=== PATIENT | male | born 1975 | race African-American/Black ===

== ENCOUNTER 2022-04-11 14:00 | Emergency (ER) | payer BC, MEDICAID, SELFPAY ==
[2022-04-11 14:02] VITALS: BP 146/85; PULSE 79; RESP 16; TEMP 36.2; O2SAT 96; BMI 26.9
--- NOTE | 2022-04-11 16:04 | ED.VIS.LOWEX ---
HPI History of Present Illness Chief Complaint: Lower Extremity Injury Informant: patient Occured/Mechanism Mechanism/Context: Yes unknown Onset/Context/Timing Onset: Today Context: Sudden Onset Timing: Continuous Quality of Pain: Aching Location: R calf Current Severity: Moderate Maximum Severity: Severe Worsened by: moving foot, trying to WB Relieved by: remaining still Associated Symptoms Associated Symptoms: Negative for Parasthesia or Weakness Narrative Narrative: Patient states he was on his driveway during his lunch break, he states that he turned to run and upon starting to do this he heard and felt a loud pop in his right calf that felt like he was shot in the calf. Since then he has had pain there and unable to bear weight on it without severe discomfort. No numbness or tingling, no pain in his knee or ankle. PFSH PFSH Medical History no medical history no medical history Home Medications naproxen 500 mg tablet 500 mg PO BID PRN #20 tabs 04/11/22 [Rx Last Taken Unknown] Allergy/AdvReac Type Severity Reaction Status Date / Time No Known Allergies Allergy Verified 04/11/22 14:01 Surgical History no surgical history no surgical history Social History Smoking Status: Light Smoker (<10/day) ROS ROS ED Constitutional Constitutional ED: Denies chills or fever(s) Musculoskeletal Musculoskeletal: Reports extremity pain; Denies neck pain Integumentary Denies Abrasions, rash or wounds Neurologic Neurologic: Denies paresthesias or weakness EXAM Physical Exam Const Vital Signs: 04/11/22 14:02 Temperature 97.2 F L Temperature Source Temporal Pulse Rate 79 Respiratory Rate 16 Blood Pressure 146/85 H Blood Pressure Mean 105 Pulse Ox 96 Oxygen Delivery Method Room Air Positive well nourished and well developed General Appearance ED: well developed and NAD Neck full ROM and supple Back/Spine normal ROM and normal to inspection Extremity Extremity Narrative: Mild asymmetric swelling right calf with tenderness in the medial aspect of the gastrocnemius. Slowly is nontender. Able to plantar flex but limited because it is very painful. Able to dorsiflex better but that hurts too. Cummins test is normal, with Achilles appearing to be intact. No bony tenderness in the knee or the fibula or the tibia. No popliteal tenderness or pain. Neuro oriented x3, no focal motor deficits and no sensory deficits noted Sensorium / Orientation: alert Psych mental status grossly normal and thought process normal Skin no wounds Rashes: no rashes MDM MDM MDM Narrative Medical decision making narrative: Consistent with a gastrocnemius muscle rupture. I do not feel a cord, this is not a DVT. Patient states he was seen in urgent care initially and sent here, he does not need any other tests here, he needs to follow-up with orthopedics, he is given crutches, and anti-inflammatories and advised to ice. He was also given work restrictions because he has very mobile in his job. Discussed with Dr. Bran, agrees with crutches, anti-inflammatories, ice, and follow-up. Discharge Plan Triage Chief Complaint: Lower Extremity Injury ED Provider: Rayo Murillo Dx/Rx/DC Orders Clinical Impression: Rupture of right gastrocnemius muscle Instructions: Gastrocnemius Muscle Tear Prescriptions: New naproxen 500 mg tablet 500 mg PO BID PRN Qty: 20 0RF Stand Alone Forms: Work Status Form Primary Care Provider: Zaire Mcdonald Referrals: Zaire Mcdonald MD [Primary Care Provider] - Francis Bran DO [STAFF PHYSICIAN] - As soon as possible (call for appt) Disposition Disposition: Home, Self Care
[2022-04-11] MEDS: Naproxen 250 MG Tablet 500 MG PO (16:21)
== END 2022-04-11 16:25 | disposition home or self-care (01) ==
LOC: ED 16:21
PROVIDERS: Emergency Provider Emergency Medicine; PCP Family Medicine; Visit Provider Emergency Medicine
DX: S86.111A Strain of other muscle(s) and tendon(s) of posterior muscle group at lower leg level, right leg, initial encounter (principal); X58.XXXA Exposure to other specified factors, initial encounter; Y93.02 Activity, running; Y92.89 Other specified places as the place of occurrence of the external cause; F17.200 Nicotine dependence, unspecified, uncomplicated
CPT/HCPCS: 99284